=== PATIENT | male | born 1965 | race Hispanic/Latino ===

== ENCOUNTER 2017-10-01 17:52 | Emergency (ER) | payer OTHER ==
[~2017-10-01] VITALS: Ht 172.7 cm; Wt 108.9 kg
[~2017-10-01 17:52] MED LIST: AUGMENTIN 875 M1 TAB PO; MEDROL DOSEPAK1 PAC PO; NOVAPLUS V0.09 MG/Ac INH
--- NOTE | 2017-10-01 20:51 | CT SCAN REPORT ---
EXAMINATION: CT HEAD WITHOUT CONTRAST CLINICAL INFORMATION: Headache. COMPARISON: None available. TECHNIQUE: Contiguous axial imaging was performed from the skull base to vertex without intravenous administration of contrast. FINDINGS: There is increased density along the superior sagittal sinus and transverse sinuses which may be secondary to hemoconcentration though an MRI of the brain and MRV of the head would be helpful in excluding the presence of cerebral venous thrombosis. There is no intracranial hemorrhage, hydrocephalus, extra-axial surface collection, midline shift, or other herniation pattern. Pink to white matter differentiation is diffusely maintained without evidence of an evolved acute territorial infarct. The basilar cisterns are preserved. No significant soft tissue abnormality. No acute osseous abnormality. The paranasal sinuses and the mastoid air cells are well-aerated. IMPRESSION: There is increased density along the superior sagittal sinus and transverse sinuses which may be secondary to hemoconcentration though a MRI of the brain and MRV of the head would be helpful in excluding the presence of cerebral venous thrombosis.
--- NOTE | 2017-10-01 21:01 | ED HEADACHE COMPLAINT ---
History of Present Illness General Chief Complaint: Headache Stated Complaint: MILLER Source: patient Exam Limitations: no limitations Vital Signs & Intake/Output Vital Signs & Intake/Output Vital Signs Date Time Temp Pulse Resp B/P B/P Pulse O2 O2 Flow FiO2 Mean Ox Delivery Rate 10/02 0021 97.8 84 18 132/74 99 Room Air 10/01 2235 98.4 68 18 134/79 95 Room Air ED Intake and Output 10/02 0000 10/01 1200 Intake Total Output Total Balance Patient 240 lb Weight Weight Reported by Patient Measurement Method Allergies Coded Allergies: No Known Allergies (10/15/15) Reconcile Medications Albuterol Sulfate (Ventolin Hfa) 0.09 MG/Actuation KENY 1-2 PUFF INH Q6P PRN SOB AMOXICILLIN/POTASSIUM CLAV (Augmentin 875-125 Tablet) 875 MG/125 MG TAB 1 TAB PO BID SINUSITIS Methylprednisolone. (Medrol) 1 PAC PAC 4 MG PO AD BRONCHITIS Triage Note: 52 YO MALE TO TRIAGE C/O HEADACHE SINCE FRIDAY. STATES PAIN IS RIGHT ABOVE EYES. STATES HE HAD ANESTHETIA ON FRIDAY FOR A ROUTINE COLONOSCOPY SO HES NOT SURE IF ITS FROM THAT. STATES HAS BEEN TAKING TYLENOL WITHOUT RELIEF. DENEIS VISUAL CHANGES. Triage Nurses Notes Reviewed? yes Onset: Abrupt Duration: day(s): (2) Timing: single episode today Quality/Severity: moderate, pressure Severity Numbers: 7 Head Injury Location: frontal No Modifying Factors: none HPI: 52-year-old male past medical history presents for evaluation of a headache. Patient states that 2 days ago he had a colonoscopy. When he woke up from the anesthesia he had a headache that has been present since. He states the pain is located in the back of his head raised towards the front and behind his eyes.. He describes as pressure feels like his eyes or being pushed out of his head. No other associated symptoms. No chest pain shortness of breath fever changes in vision pain with extraocular motion. No head trauma. He does note that he takes a testosterone supplement. No history of DVT/PE. No one-sided weakness dizziness or lightheadedness. (Baldemar Henry) Past History Travel History Traveled to [place] past 21 day No Medical History Any Pertinent Medical History? 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 No (Baldemar Henry) Review of Systems Review of Systems Constitutional: Reports: no symptoms. Eyes: Reports: no symptoms. Ears, Nose, Throat, Mouth: Reports: no symptoms. Respiratory: Reports: no symptoms. Cardiovascular: Reports: no symptoms. Gastrointestinal/Abdominal: Reports: no symptoms. Genitourinary: Reports: no symptoms. Musculoskeletal: Reports: no symptoms. Skin: Reports: no symptoms. Neurological/Psychological: Reports: headache. Hematologic/Endocrine: Reports: no symptoms. Endocrine: Reports: no symptoms. Immunologic/Allergic: Reports: no symptoms. All Other Systems: Reviewed and Negative (Baldemar Henry) Physical Exam Physical Exam General Appearance: well developed/nourished, no apparent distress, alert, awake Head: atraumatic, normal appearance Eyes: Bilateral: normal appearance, PERRL, EOMI. Ears, Nose, Throat: normal pharynx, normal ENT inspection, hearing grossly normal Neck: normal inspection, supple, full range of motion Respiratory: normal breath sounds, chest non-tender, no respiratory distress, lungs clear Cardiovascular: regular rate/rhythm, normal peripheral pulses Gastrointestinal: normal bowel sounds, soft, non-tender, no organomegaly Back: normal inspection, normal range of motion, no vertebral tenderness Extremities: normal inspection, normal range of motion, no edema Psychiatric: awake, alert, oriented x 3 Cranial Nerves: normal hearing, normal speech, PERRL Coordination/Gait: normal finger to nose, normal gait Motor/Sensory: no motor/sensory deficits Skin: intact, normal color, warm/dry Lymphatic: no anterior cervical isaura Core Measures Sepsis Present: No Sepsis Focused Exam Completed? No (Baldemar Henry) Progress Differential Diagnosis: cav sinus thromb, cluster MILLER, intracranial Hem., migraine MILLER, musculoskeletal pain, sinusitis, subarach. Hem., tension MILLER Plan of Care: Patient seen and evaluated. He is neurologically intact. Vital signs are stable. He has headaches as present since his colonoscopy. CT scan of the brain shows a concern for cavernous sinus thrombosis. Patient does take a testosterone supplement which could mean he has HYPERCOAUGUABLE STATE. Case discussed with neurosurgeon Dr. Goncalves. She recommends transfer to [facility] where they can do an urgent MRI to rule in/rule out cavernous sinus thrombosis. Saline lock placed. Patient will be transferred via ambulance. Case discussed with [facility] AGREES. Diagnostic Imaging: Viewed by Me: CT Scan. Discussed w/RAD: CT Scan. Radiology Impression: PATIENT: REAGAN PENA PRESENT AGE: 52 PATIENT ACCOUNT NO: [id number] : 66 LOCATION: [facility] ORDERING PHYSICIAN: Baldemar ROMAN SERVICE DATE: 10/01/17 EXAM TYPE: CAT - CT HEAD WO IV CONTRAST EXAMINATION: CT HEAD WITHOUT CONTRAST CLINICAL INFORMATION: Headache. COMPARISON: None available. TECHNIQUE: Contiguous axial imaging was performed from the skull base to vertex without intravenous administration of contrast. FINDINGS: There is increased density along the superior sagittal sinus and transverse sinuses which may be secondary to hemoconcentration though an MRI of the brain and MRV of the head would be helpful in excluding the presence of cerebral venous thrombosis. There is no intracranial hemorrhage, hydrocephalus, extra-axial surface collection, midline shift, or other herniation pattern. Pink to white matter differentiation is diffusely maintained without evidence of an evolved acute territorial infarct. The basilar cisterns are preserved. No significant soft tissue abnormality. No acute osseous abnormality. The paranasal sinuses and the mastoid air cells are well-aerated. IMPRESSION: There is increased density along the superior sagittal sinus and transverse sinuses which may be secondary to hemoconcentration though a MRI of the brain and MRV of the head would be helpful in excluding the presence of cerebral venous thrombosis. DICTATED BY: Jayden Gillespie MD DATE/TIME DICTATED:10/01/172042 REPAIR ARMATURE WINDER:FRIDA DATE/TIME TRANSCRIBED:10/01/172042 CONFIDENTIAL, DO NOT COPY WITHOUT APPROPRIATE AUTHORIZATION. (Baldemar Henry) Radiology Impression: PATIENT: REAGAN PENA PRESENT AGE: 52 PATIENT ACCOUNT NO: [id number] : 66 LOCATION: [facility] ORDERING PHYSICIAN: Baldemar ROMAN SERVICE DATE: 10/01/17 EXAM TYPE: CAT - CT HEAD WO IV CONTRAST EXAMINATION: CT HEAD WITHOUT CONTRAST CLINICAL INFORMATION: Headache. COMPARISON: None available. TECHNIQUE: Contiguous axial imaging was performed from the skull base to vertex without intravenous administration of contrast. FINDINGS: There is increased density along the superior sagittal sinus and transverse sinuses which may be secondary to hemoconcentration though an MRI of the brain and MRV of the head would be helpful in excluding the presence of cerebral venous thrombosis. There is no intracranial hemorrhage, hydrocephalus, extra-axial surface collection, midline shift, or other herniation pattern. Pink to white matter differentiation is diffusely maintained without evidence of an evolved acute territorial infarct. The basilar cisterns are preserved. No significant soft tissue abnormality. No acute osseous abnormality. The paranasal sinuses and the mastoid air cells are well-aerated. IMPRESSION: There is increased density along the superior sagittal sinus and transverse sinuses which may be secondary to hemoconcentration though a MRI of the brain and MRV of the head would be helpful in excluding the presence of cerebral venous thrombosis. DICTATED BY: Jayden Gillespie MD DATE/TIME DICTATED:10/01/172042 REPAIR ARMATURE WINDER:FRIDA DATE/TIME TRANSCRIBED:10/01/172042 CONFIDENTIAL, DO NOT COPY WITHOUT APPROPRIATE AUTHORIZATION. (Stephen Alvarado MD) Departure Departure Disposition: [facility] (ACUTE) Condition: Stable Clinical Impression Primary Impression: Headache Qualifiers: Headache type: unspecified Headache chronicity pattern: acute headache Intractability: not intractable Qualified Code: R51 - Headache Referrals: Cb Estrada MD (PCP/Family) Departure Forms: Customer Survey General Discharge Information (Baldemar Henry) PA/[employer] Co-Sign Statement Statement: ED Attending supervision documentation- x I saw and evaluated the patient. I have also reviewed all the pertinent lab results and diagnostic results. I agree with the findings and the plan of care as documented in the PA's/[employer]'s documentation. [] I have reviewed the ED Record and agree with the PA's/[employer]'s documentation. [] Additions or exceptions (if any) to the PAs/[employer]'s note and plan are summarized below: [] (Stephen Alvarado MD)
[2017-10-02 00:21] VITALS: BP 132/74
== END 2017-10-02 02:22 | disposition short-term general hospital (02) ==
LOC: ERH 17:52
DX: R51 Headache (principal)

== ENCOUNTER 2017-10-03 16:04 | Emergency (ER) | payer OTHER ==
[~2017-10-03] VITALS: Ht 172.7 cm; Wt 108.9 kg
[2017-10-03 16:17] VITALS: BP 151/93
--- NOTE | 2017-10-03 16:42 | ED GI/GU/ABDOMINAL COMPLAINT ---
History of Present Illness General Chief Complaint: Abdominal Pain/Flank Pain Stated Complaint: L FLANK PAIN, HURTS TO URINATE Source: patient Exam Limitations: no limitations Vital Signs & Intake/Output Vital Signs & Intake/Output Vital Signs Date Time Temp Pulse Resp B/P B/P Pulse O2 O2 Flow FiO2 Mean Ox Delivery Rate 10/03 1617 97.3 88 18 151/93 98 Room Air Room Air Allergies Coded Allergies: No Known Allergies (10/15/15) Reconcile Medications Albuterol Sulfate (Ventolin Hfa) 0.09 MG/Actuation KENY 1-2 PUFF INH Q6P PRN SOB AMOXICILLIN/POTASSIUM CLAV (Augmentin 875-125 Tablet) 875 MG/125 MG TAB 1 TAB PO BID SINUSITIS Methylprednisolone. (Medrol) 1 PAC PAC 4 MG PO AD BRONCHITIS Triage Note: PT TO ED WITH C/O LEFT FLANK, LEFT ABD AND "HURTS WHEN I PEE" STARTED AT 2PM TODAY. NO HX OF UTI OR KIDNEY STONES. Triage Nurses Notes Reviewed? yes HPI: 52M no PMH, recent screening colonoscopy followed by headache which prompted head CT, showing density and sent to [place] and found to have a negative MRI, presenting today with acute onset of left sided flank and groin pain. Denies dysuria, hematuria, fever, or any other systemic symptoms. Went to the bathroom here in the ER and passed a small dark stone. His symptoms have now resolved. Past History Travel History Traveled to [place] past 21 day No Medical History Any Pertinent Medical History? see below for history Neurological: HEADACHE,HAD CT "SPOT" SENT [facility] MRI NEGATIVE. 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 No Review of Systems Review of Systems Constitutional: Reports: no symptoms. EENTM: Reports: no symptoms. Respiratory: Reports: no symptoms. Cardiovascular: Reports: no symptoms. GI: Reports: no symptoms. Genitourinary: Reports: no symptoms. Musculoskeletal: Reports: no symptoms. Skin: Reports: no symptoms. Neurological/Psychological: Reports: no symptoms. Hematologic/Endocrine: Reports: no symptoms. Immunologic/Allergic: Reports: no symptoms. All Other Systems: Reviewed and Negative Physical Exam Physical Exam General Appearance: well developed/nourished, no apparent distress Head: atraumatic, normal appearance Eyes: Bilateral: normal appearance. Ears, Nose, Throat, Mouth: hearing grossly normal, moist mucous membrane Neck: normal inspection, supple, full range of motion Respiratory: normal breath sounds, chest non-tender, no respiratory distress Cardiovascular: regular rate/rhythm Gastrointestinal: soft, non-tender Back: normal inspection, normal range of motion Extremities: normal range of motion, evidence of injury Neurologic/Psych: awake, alert, oriented x 3, normal mood/affect Skin: intact, normal color, warm/dry Core Measures ACS in differential dx? No Sepsis Present: No Sepsis Focused Exam Completed? No Progress Differential Diagnosis: AAA, AMI, appendicitis, biliary colic, bowel obstruction , colon cancer, cholecystitis, diverticulitis, epididymitis, esophageal varices, gastritis, hepatitis, hernia, hemorrhoids, ischemic bowel, inflamm bowel dis, Flavia-[place]ma tear, orchitis, pancreatitis, prostatitis, peptic ulcer, PUD/GERD, perforated viscous, pyelonephritis, SBO, STD, testicular torsion, ureterolithiasis, urinary retention, urethritis, UTI/pyelo Plan of Care: Orders Procedure Date/time Status CULTURE,URINE 10/03 161 Active URINALYSIS 10/03 1616 Active Laboratory Tests 10/03/17 1627: Urine Color Pending, Urine Clarity Pending, Urine pH Pending, Ur Specific Jolley Pending, Urine Protein Pending, Urine Ketones Pending, Urine Nitrite Pending, Urine Bilirubin Pending, Urine Urobilinogen Pending, Ur Leukocyte Esterase Pending, Ur Microscopic Pending, Urine Hemoglobin Pending, Urine Glucose Pending Microbiology 10/03 162 URINE ROUT: Urine Culture - RECD Initial ED EKG: none Departure Departure Disposition: HOME OR SELF CARE Condition: Stable Clinical Impression Primary Impression: Nephrolithiasis Referrals: Cb Estrada MD (PCP/Family) Additional Instructions: Follow up with your PCP. Departure Forms: Customer Survey General Discharge Information
== END 2017-10-03 16:48 ==
LOC: ERH 16:04
DX: N20.0 Calculus of kidney (principal)
CPT/HCPCS: 81001; 87086